=== PATIENT | male | born 1975 | race Caucasian/White ===

== ENCOUNTER 2020-03-19 07:29 | Emergency (ER) | payer OTHER, SELFPAY ==
[2020-03-19] VITALS (10 sets, daily range): BP systolic 127–139; BP diastolic 75–93; PULSE 57–81; RESP 16; TEMP 36.9; O2SAT 98–99; BMI 23.1
--- NOTE | 2020-03-19 07:52 | ED.ABDPAIN ---
HPI - Abdominal Pain General Chief Complaint: Abdominal Pain Stated Complaint: abd pain Time Seen by Provider: 03/19/20 07:51 Source: patient Mode of arrival: Ambulatory Limitations: no limitations History of Present Illness HPI narrative: This is a 45-year-old male who comes to the emergency department with complaint of lower abdominal pain. Patient states pain started shortly after lifting heavy weight objects. He has continued to lift objects intermittently as part of his job and continues to have discomfort. He states it then began radiating towards the right side and then also moving up towards the epigastric area. He states that a sit-up or crunch position exacerbates his symptoms. He denies any back or flank pain. He denies any pain radiating down his legs or into his testicles. He did have a muscle pull that had been suspected to be a hernia in the past and actually saw a surgeon. He states that was more in the groin and felt different than today. He denies any fevers, no chills. He has had nausea particularly when in significant pain but no vomiting. He has had normal bowel movements with no diarrhea, constipation, melena or hematochezia. He denies any dysuria, urgency frequency or incontinence. He has tried Tylenol and ibuprofen for discomfort with mild to moderate improvement. He denies any other medical issues. He does use cigarettes, he does drink alcohol daily, he uses marijuana but no other illicit. He is accompanied by his significant other. Related Data Previous Rx's Medication Instructions Recorded diazepam [Valium] 10 mg PO SEE INSTRUCTIONS #2 tab 06/21/16 amoxicillin-pot clavulanate 1 tab PO Q12H #20 tab 03/19/20 [Augmentin] ketorolac 10 mg PO Q6H 5 Days #20 tab 03/19/20 ondansetron HCl [Zofran] 4 mg PO Q6H PRN #10 tab 03/19/20 Allergies Allergy/AdvReac Type Severity Reaction Status Date / Time No Known Drug Allergies Allergy Verified 03/19/20 07:39 Review of Systems Review of Systems ROS Unobtainable: All systems reviewed & are unremarkable except as noted in HPI and below Patient History Social History Smoking Status: Current every day smoker Smoking Status: Current every day smoker tobacco type: cigarettes alcohol intake frequency: 3 or more drinks per day Substance Use Type: marijuana Exam Narrative Exam Narrative: GENERAL: Alert and oriented x three, thin, well-appearing male in mild distress. HEENT: Head normocephalic, atraumatic, EOMI, pupils reactive, face symmetric, moist mucous membranes NECK: Supple, full range of motion CARDIOVASCULAR: Regular rate and rhythm without murmurs, rubs or gallops. RESPIRATORY: Breath sounds equal bilaterally, no wheezes rales or rhonchi. ABDOMEN: Soft, nontender with palpation. Normoactive bowel sounds all 4 quadrants. No guarding or rebound, rigidity, no mass. No ecchymosis, no erythema or other skin changes noted. No bruit or pulsatile mass. : No CVA tenderness, no inguinal hernia noted. EXTREMITIES: Normal range of motion, no clubbing or edema. Neurovascularly intact NEUROLOGICAL: Cranial nerves II through XII grossly intact. Moving all extremities SKIN: Warm, dry, no petechiae, no rashes or lesions. Initial Vital Signs Initial Vital Signs: Vital Signs Blood Pressure 127/87 03/19/20 07:37 Course Orders Ordered: ED Orders 03/19/20 08:20 Complete Blood Count AUTO DIFF Stat Comprehensive Metabolic Panel Stat Lipase Stat 03/19/20 09:21 CT abdomen pelvis w con Stat Discontinued Medications Sodium Chloride (Normal Saline 0.9%) 1,000 mls @ 1,000 mls/hr IV BOLUS ONE Stop: 03/19/20 09:01 Last Infusion: 03/19/20 09:28 Dose: 0 mls/hr Documented by: Admin: 03/19/20 08:25 Dose: 1,000 mls/hr Documented by: SHERRIE Ketorolac Tromethamine (Ketorolac 60 Mg/2 Ml Vial) 30 mg IV NOW ONE Stop: 03/19/20 08:03 Last Admin: 03/19/20 08:27 Dose: 30 mg Documented by: SHERRIE Ondansetron HCl (Ondansetron 4 Mg/2 Ml Inj) 4 mg IV NOW ONE Stop: 03/19/20 08:03 Last Admin: 03/19/20 08:28 Dose: 4 mg Documented by: SHERRIE Reevaluation(s) Time: 08:57 Vital Signs Vital signs: Vital Signs - 8 hr 03/19/20 07:37 03/19/20 07:38 03/19/20 07:39 Temperature 98.5 F Pulse Rate 81 76 Respiratory Rate 16 Blood Pressure 127/87 127/87 Pulse Oximetry 99 98 03/19/20 08:00 03/19/20 08:30 03/19/20 09:22 Temperature Pulse Rate 66 63 58 L Respiratory Rate Blood Pressure 129/81 128/93 H Pulse Oximetry 98 98 98 03/19/20 09:23 03/19/20 09:30 03/19/20 10:00 Temperature Pulse Rate 57 L 61 69 Respiratory Rate Blood Pressure 139/75 Pulse Oximetry 99 99 98 03/19/20 10:10 Temperature Pulse Rate 64 Respiratory Rate 16 Blood Pressure 132/76 Pulse Oximetry 99 MDM - Abdominal Pain Lab Data Attestation: I reviewed the patient's lab results. Lab results narrative: Patient's labs show no major abnormalities. Point of care urine is negative Result diagrams: 03/19/20 08:20 03/19/20 08:20 Labs: Lab Results 03/19/20 03/19/20 Range/Units 08:20 08:20 WBC 4.5 (4.5-11.0) X10^3/uL RBC 4.40 L (4.5-5.9) X10^6/uL Hgb 14.0 (13.5-17.5) g/dL Hct 41.1 (41-53) % MCV 93.6 (80-100) fL MCH 31.9 (26-34) PG MCHC 34.1 (30-36) % RDW 13.2 (11.6-14.8) % Plt Count 250 (150-400) X10^3/uL Neut % (Auto) 53.1 (50-75) % Lymph % (Auto) 30.1 (25-40) % [place] % (Auto) 14.6 H (3-14) % Eos % (Auto) 1.9 L (2-4) % Baso % (Auto) 0.3 (0-2) % Neut # (Auto) 2400 (9243-4018) /uL Lymph # (Auto) 1300 (2387-6652) /uL [place] # (Auto) 700 (0-900) /uL Eos # (Auto) 100 (0-450) /uL Baso # (Auto) 0 (0-100) /uL Sodium 139 (137-145) mmol/L Potassium 4.2 (3.4-5.1) mmol/L Chloride 108 H (98-107) mmol/L Carbon Dioxide 29 (22-32) mmol/L BUN 12 (9-20) mg/dL Creatinine 0.53 L (0.66-1.25) mg/dL Estimated GFR > 60.0 (>60) mL/min BUN/Creatinine Ratio 22.6 H (6-22) Glucose 96 (70-100) mg/dL Calcium 9.1 (8.4-10.2) mg/dL Total Bilirubin 0.6 (0.2-1.3) mg/dL AST 41 (17-59) IU/L ALT 28 (<50) IU/L Alkaline Phosphatase 63 (38-126) U/L Total Protein 6.9 (6.3-8.2) g/dL Albumin 4.2 (3.5-5.0) g/dL Globulin 2.7 (1.7-4.1) g/dL Albumin/Globulin Ratio 1.6 (1.0-2.8) Lipase 43 (23-300) U/L Point of care testing: Urine Dip Bedside Urine Glucose Negative Bedside Urine Bilirubin - Negative Bedside Urine Ketone - Negative Urine Specific [place] 1.010 Bedside Urine Occult Blood - Negative Bedside Urine pH 8 Bedside Urine Protein - Negative Bedside Urine Urobilinogen - Negative Bedside Urine Nitrite - Negative Bedside Urine Leukocytes - Negative Esterase Imaging Data CT scan - abdomen/pelvis: Radiologist's Impression: [address] [id number] Scan ReportSigned Patient: Chris Patterson [facility]#: [id number]: 1975Acct:[id number]/Sex: 45 / MDate of Service: 03/19/20Loc: EDAccession Number: [id number] Procedure: CT abdomen pelvis w con Ordering Provider: Lynne Borges D.O. PROCEDURE: CT ABDOMEN PELVIS W CON INDICATIONS: LLQ pain no radiating to right and epigastric area TECHNIQUE: After the administration of intravenous contrast, 5 mm thick sections acquired from the diaphragm to the symphysis. 5 mm coronal and sagittal reformats were acquired. For radiation dose reduction, the following was used: automated exposure control, adjustment of mA and/or kV according to patient size. COMPARISON: None. FINDINGS: Image quality: Excellent. ABDOMEN: Lung bases: Lung bases are clear. Heart size is normal. Solid organs: Liver is normal in size and enhancement. Gallbladder wall is not thickened. Biliary system is non dilated. Pancreas enhances normally. Spleen is normal in size and enhancement. No adrenal nodules. Kidneys demonstrate normal size and enhancement, without hydronephrosis. A water density cyst is seen at the inferior pole of the right kidney measuring 12 Hounsfield units and 1.3 cm. Peritoneum and bowel: In this patient with this given history, scrutiny is given to sigmoid colon and the left lower quadrant. There is minimal sigmoid diverticulosis seen. There is mild wall thickening seen involving the distal descending colon/proximal sigmoid colon. No findings of perforation or abscess can be seen. Bowel loops otherwise demonstrate normal wall thickness and caliber. No free fluid or air. A normal appendix is incidentally noted. Nodes and vessels: No retroperitoneal or mesenteric adenopathy by size criteria. Aorta and inferior vena cava are normal in size. Miscellaneous: No ventral hernias. PELVIS: Genitourinary: Bladder wall thickness is normal. Miscellaneous: No inguinal hernias or adenopathy. Bones: No suspicious bony lesions. No vertebral body compression fractures. Mild levoconvex scoliotic curvature is noted. IMPRESSION: Mild wall thickening is seen involving the distal descending colon and proximal sigmoid colon. Please correlate with causes of focal colitis, including diverticulitis. No findings of perforation or abscess can be seen. Incidental note is made of: Simple appearing right renal cyst Levoconvex scoliotic curvature Normal appendix Dictated by: Demetrio Baca M.D. on 03/19/2020 at 8:29 Approved by: Demetrio Baca M.D. on 03/19/2020 at 8:32 MDM Narrative Medical decision making narrative: 45-year-old male comes emergency department complaint of abdominal pain that sounds suspicious for musculoskeletal cause but with changing location over the last week, nausea concern for possible flu intra-abdominal process. Patient's labs show no major abnormalities, point of care urine is negative. Patient's CT shows thickening consistent with colitis there is a small amount of sigmoid diverticulosis in the same area so elected to start oral antibiotics. Patient was given prescription for Toradol and Zofran as he found this quite helpful. Discharge Plan Departure Patient Disposition: Home Clinical Impression: Colitis, Abdominal pain, Cyst of right kidney Instructions: DI for Colitis Activity Restrictions/Additional Instructions: Your imaging today shows thickening of the sigmoid and distal colon, consistent with colitis, there is a small amount of diverticulosis but no significant diverticulitis in the same area but I would recommend starting oral antibiotics. There is a renal cyst noted incidentally but does not require any specific follow-up. Take antibiotics until completely gone. May take Zofran 1 tablet every 6 hours as needed for nausea. Take Toradol or ketorolac 1 tablet every 6 hours as needed for pain. I would recommend taking this with food or small glass of milk. Also you may take Tylenol with this medication but do not take any ibuprofen or other NSAIDs with this medication. Return to the ER for fevers, worsening abdominal pain, back or flank pain, black or bloody stools, lightheadedness or passing out new chest pain or shortness of breath, persistent vomiting or other new or concerning symptoms. Prescriptions: New amoxicillin-pot clavulanate [Augmentin] 875-125 mg tablet 1 tab PO Q12H Qty: 20 RF: 0 ketorolac 10 mg tablet 10 mg PO Q6H 5 Days Qty: 20 RF: 0 ondansetron HCl [Zofran] 4 mg tablet 4 mg PO Q6H PRN (Reason: nausea and vomiting) Qty: 10 RF: 0 No Action diazepam [Valium] 10 MG tablet 10 mg PO SEE INSTRUCTIONS Qty: 2 RF: 0 Stand Alone Forms: Work Release Note
[2020-03-19] MEDS: SODIUM CHLORIDE 0.9% 1,000 ML 1000 ML IV (08:25)
[2020-03-19] MEDS: KETOROLAC 60 MG/2 ML VIAL 30 MG IV (08:27)
[2020-03-19] MEDS: ONDANSETRON 4 MG/2 ML INJ IV (08:28)
[2020-03-19 08:35] LABS: Add Manual Diff / Slide Review NO; Basophils Absolute Auto 0 /uL (0-100); Basophils Percent Auto 0.3 % (0-2); Eosinophils Absolute Auto 100 /uL (0-450); Eosinophils Percent Auto 1.9 % (2-4); Hematocrit 41.1 % (41-53); Lymphocytes Absolute Auto 1300 /uL (1100-4500); Lymphocytes Percent Auto 30.1 % (25-40); Mean Corpuscular HGB Conc 34.1 % (30-36); Mean Corpuscular Hemoglobin 31.9 PG (26-34); Mean Corpuscular Volume 93.6 fL (80-100); Monocytes Absolute Auto 700 /uL (0-900); Monocytes Percent Auto 14.6 % (3-14); Neutrophils Absolute Auto 2400 /uL (1500-7000); Neutrophils Percent Auto 53.1 % (50-75); Platelet Count 250 X10^3/uL (150-400); Red Cell Distribution Width 13.2 % (11.6-14.8); White Blood Cell Count 4.5 X10^3/uL (4.5-11.0)
[2020-03-19 08:51] LABS: Alanine Aminotransferase 28 IU/L (<50); Albumin 4.2 g/dL (3.5-5.0); Albumin Globulin Ratio 1.6 (1.0-2.8); Alkaline Phosphatase 63 U/L (38-126); Aspartate Aminotransferase 41 IU/L (17-59); BUN Creatinine Ratio 22.6 (6-22); Bilirubin Total 0.6 mg/dL (0.2-1.3); Blood Urea Nitrogen 12 mg/dL (9-20); Calcium 9.1 mg/dL (8.4-10.2); Carbon Dioxide 29 mmol/L (22-32); Chloride 108 mmol/L (98-107); Estimated Glomerular Filt Rate > 60.0 mL/min (>60); Globulin 2.7 g/dL (1.7-4.1); Glucose 96 mg/dL (70-100); HEMOLYSIS < 15 (0-50); Lipase 43 U/L (23-300); Potassium 4.2 mmol/L (3.4-5.1); Sodium 139 mmol/L (137-145); Total Protein 6.9 g/dL (6.3-8.2)
--- NOTE | 2020-03-19 09:21 | DI.CT.S_ITS ---
PROCEDURE: CT ABDOMEN PELVIS W CON INDICATIONS: LLQ pain no radiating to right and epigastric area TECHNIQUE: After the administration of intravenous contrast, 5 mm thick sections acquired from the diaphragm to the symphysis. 5 mm coronal and sagittal reformats were acquired. For radiation dose reduction, the following was used: automated exposure control, adjustment of mA and/or kV according to patient size. COMPARISON: None. FINDINGS: Image quality: Excellent. ABDOMEN: Lung bases: Lung bases are clear. Heart size is normal. Solid organs: Liver is normal in size and enhancement. Gallbladder wall is not thickened. Biliary system is non dilated. Pancreas enhances normally. Spleen is normal in size and enhancement. No adrenal nodules. Kidneys demonstrate normal size and enhancement, without hydronephrosis. A water density cyst is seen at the inferior pole of the right kidney measuring 12 Hounsfield units and 1.3 cm. Peritoneum and bowel: In this patient with this given history, scrutiny is given to sigmoid colon and the left lower quadrant. There is minimal sigmoid diverticulosis seen. There is mild wall thickening seen involving the distal descending colon/proximal sigmoid colon. No findings of perforation or abscess can be seen. Bowel loops otherwise demonstrate normal wall thickness and caliber. No free fluid or air. A normal appendix is incidentally noted. Nodes and vessels: No retroperitoneal or mesenteric adenopathy by size criteria. Aorta and inferior vena cava are normal in size. Miscellaneous: No ventral hernias. PELVIS: Genitourinary: Bladder wall thickness is normal. Miscellaneous: No inguinal hernias or adenopathy. Bones: No suspicious bony lesions. No vertebral body compression fractures. Mild levoconvex scoliotic curvature is noted. IMPRESSION: Mild wall thickening is seen involving the distal descending colon and proximal sigmoid colon. Please correlate with causes of focal colitis, including diverticulitis. No findings of perforation or abscess can be seen. Incidental note is made of: Simple appearing right renal cyst Levoconvex scoliotic curvature Normal appendix Dictated by: Demetrio Baac M.D. on 03/19/2020 at 8:29 Approved by: Demetrio Baca M.D. on 03/19/2020 at 8:32
== END 2020-03-19 10:17 | disposition home or self-care (01) ==
PROVIDERS: Emergency Provider Emergency Medicine; Family Provider Family Medicine
DX: K52.9 Noninfective gastroenteritis and colitis, unspecified (principal); R10.9 Unspecified abdominal pain; N28.1 Cyst of kidney, acquired; R11.0 Nausea
CPT/HCPCS: 36415; 74177; 80053; 81003; 83690; 85025; 96361; 96374; 96375; 99283; 99284; J1885; J2405; Q9967

== ENCOUNTER → 2020-04-30 07:56 | Outpatient (CLI) | payer OTHER, SELFPAY ==
[2020-04-30 08:17] LABS: Add Manual Diff / Slide Review NO; Basophils Absolute Auto 0 /uL (0-100); Basophils Percent Auto 0.3 % (0-2); Eosinophils Absolute Auto 100 /uL (0-450); Eosinophils Percent Auto 2.1 % (2-4); Hemoglobin 14.4 g/dL (13.5-17.5); Lymphocytes Absolute Auto 1200 /uL (1100-4500); Lymphocytes Percent Auto 34.4 % (25-40); Mean Corpuscular HGB Conc 33.6 % (30-36); Mean Corpuscular Hemoglobin 31.4 PG (26-34); Mean Corpuscular Volume 93.6 fL (80-100); Monocytes Absolute Auto 600 /uL (0-900); Monocytes Percent Auto 17.8 % (3-14); Neutrophils Absolute Auto 1600 /uL (1500-7000); Neutrophils Percent Auto 45.4 % (50-75); Platelet Count 244 X10^3/uL (150-400); Red Blood Cell Count 4.59 X10^6/uL (4.5-5.9); Red Cell Distribution Width 12.9 % (11.6-14.8); White Blood Cell Count 3.5 X10^3/uL (4.5-11.0)
[2020-04-30 09:21] LABS: Alanine Aminotransferase 19 IU/L (<50); Albumin 4.2 g/dL (3.5-5.0); Albumin Globulin Ratio 1.6 (1.0-2.8); Alkaline Phosphatase 67 U/L (38-126); Amylase 38 U/L (30-110); Aspartate Aminotransferase 30 IU/L (17-59); Bilirubin Total 0.5 mg/dL (0.2-1.3); Blood Urea Nitrogen 13 mg/dL (9-20); Calcium 9.4 mg/dL (8.4-10.2); Carbon Dioxide 26 mmol/L (22-32); Chloride 107 mmol/L (98-107); Estimated Glomerular Filt Rate > 60.0 mL/min (>60); Globulin 2.6 g/dL (1.7-4.1); Glucose 102 mg/dL (70-100); HEMOLYSIS 42 (0-50); Lipase 49 U/L (23-300); Sodium 138 mmol/L (137-145); Total Protein 6.8 g/dL (6.3-8.2)
== END ==
PROVIDERS: Family Provider Family Medicine; PCP Family Medicine; Referring Provider Nurse Practitioner Family; Visit Provider Nurse Practitioner Family
DX: R10.32 Left lower quadrant pain (principal)
CPT/HCPCS: 36415; 80053; 82150; 83690; 85025

== ENCOUNTER → 2020-09-15 15:53 | Outpatient (CLI) | payer OTHER, SELFPAY ==
[2020-09-15] MEDS: COVID-19 VACC, Ad26(JANSSEN)/PF 0.5 ML IM (16:00)
== END ==
PROVIDERS: Family Provider Family Medicine; PCP Family Medicine; Visit Provider Internal Medicine
DX: Z23 Encounter for immunization (principal)
CPT/HCPCS: 0031A; 91303

== ENCOUNTER → 2021-01-12 08:09 | Outpatient (CLI) | payer OTHER, SELFPAY ==
[2021-01-12 09:12] LABS: Add Manual Diff / Slide Review NO; Basophils Absolute Auto 0 /uL (0-100); Basophils Percent Auto 0.2 % (0-2); Eosinophils Absolute Auto 100 /uL (0-450); Hematocrit 43.3 % (41-53); Hemoglobin 14.4 g/dL (13.5-17.5); Lymphocytes Absolute Auto 1100 /uL (1100-4500); Lymphocytes Percent Auto 17.6 % (25-40); Mean Corpuscular HGB Conc 33.3 % (30-36); Mean Corpuscular Hemoglobin 31.1 PG (26-34); Mean Corpuscular Volume 93.4 fL (80-100); Monocytes Absolute Auto 800 /uL (0-900); Neutrophils Absolute Auto 4200 /uL (1500-7000); Neutrophils Percent Auto 68.2 % (50-75); Platelet Count 270 X10^3/uL (150-400); Red Blood Cell Count 4.64 X10^6/uL (4.5-5.9); Red Cell Distribution Width 13.2 % (11.6-14.8); White Blood Cell Count 6.2 X10^3/uL (4.5-11.0)
[2021-01-12 09:34] LABS: Alanine Aminotransferase 24 IU/L (<50); Albumin 4.2 g/dL (3.5-5.0); Albumin Globulin Ratio 1.6 (1.0-2.8); Alkaline Phosphatase 65 U/L (38-126); Aspartate Aminotransferase 37 IU/L (17-59); BUN Creatinine Ratio 28.3 (6-22); Bilirubin Total 0.6 mg/dL (0.2-1.3); Blood Urea Nitrogen 13 mg/dL (9-20); Calcium 8.9 mg/dL (8.4-10.2); Carbon Dioxide 27 mmol/L (22-32); Chloride 108 mmol/L (98-107); Estimated Glomerular Filt Rate > 60.0 mL/min (>60); Globulin 2.7 g/dL (1.7-4.1); Glucose 100 mg/dL (70-100); HEMOLYSIS 66 (0-50); Lipase 54 U/L (23-300); Potassium 4.7 mmol/L (3.4-5.1); Sodium 139 mmol/L (137-145); Total Protein 6.9 g/dL (6.3-8.2)
[2021-01-12 12:26] LABS: Appearance Urine UA CLEAR; Bilirubin Urine UA NEGATIVE (NEGATIVE); Color Urine UA YELLOW; Glucose Urine UA NEGATIVE (Negative); Ketones Urine UA NEGATIVE (NEGATIVE); Leukocyte Esterase Urine UA NEGATIVE (NEGATIVE); Nitrite Urine UA NEGATIVE (Negative); Occult Blood Urine UA NEGATIVE (Negative); Protein Urine UA NEGATIVE (Negative); Urobilinogen Urine UA 0.2 E.U./dL (0.2)
== END ==
PROVIDERS: Family Provider Family Medicine; PCP Family Medicine; Referring Provider Physician Assistant; Visit Provider Physician Assistant
DX: K57.92 Diverticulitis of intestine, part unspecified, without perforation or abscess without bleeding (principal)
CPT/HCPCS: 36415; 80053; 81003; 83690; 85025

== ENCOUNTER → 2023-04-27 07:21 | Outpatient (CLI) | payer OTHER, SELFPAY ==
[2023-04-27 08:55] LABS: Add Manual Diff / Slide Review NO; Basophils Absolute Auto 0 /uL (0-100); Basophils Percent Auto 0.2 % (0-2); Eosinophils Absolute Auto 100 /uL (0-450); Eosinophils Percent Auto 2.3 % (2-4); Hematocrit 42.5 % (41-53); Hemoglobin 14.4 g/dL (13.5-17.5); Lymphocytes Absolute Auto 1500 /uL (1100-4500); Lymphocytes Percent Auto 37.2 % (25-40); Mean Corpuscular HGB Conc 33.9 % (30-36); Mean Corpuscular Hemoglobin 31.2 PG (26-34); Mean Corpuscular Volume 91.9 fL (80-100); Monocytes Absolute Auto 600 /uL (0-900); Monocytes Percent Auto 14.5 % (3-14); Neutrophils Absolute Auto 1900 /uL (1500-7000); Neutrophils Percent Auto 45.8 % (50-75); Platelet Count 268 X10^3/uL (150-400); Red Blood Cell Count 4.63 X10^6/uL (4.5-5.9); Red Cell Distribution Width 13.2 % (11.6-14.8); White Blood Cell Count 4.1 X10^3/uL (4.5-11.0)
[2023-04-27 08:59] LABS: Alanine Aminotransferase 30 IU/L (<50); Albumin 4.6 g/dL (3.5-5.0); Albumin Globulin Ratio 1.5 (1.0-2.8); Alkaline Phosphatase 69 U/L (38-126); BUN Creatinine Ratio 27.3 (6-22); Bilirubin Total 0.8 mg/dL (0.2-1.3); Blood Urea Nitrogen 18 mg/dL (9-20); Calcium 9.5 mg/dL (8.4-10.2); Carbon Dioxide 25 mmol/L (22-32); Chloride 105 mmol/L (98-107); Cholesterol 201 mg/dL (140-199); Estimated Glomerular Filt Rate > 60 mL/min (>60); Glucose 94 mg/dL (70-100); HDL Cholesterol 78 mg/dL (40-60); HEMOLYSIS < 15 (0-50); LDL Cholesterol Calculated 109 mg/dL (<100); Sodium 139 mmol/L (137-145); Total Protein 7.6 g/dL (6.3-8.2); Triglycerides 68 mg/dL (35-150)
[2023-04-27 09:28] LABS: TSH w/ Reflex to FT4 1.05 uIU/mL (0.47-4.68)
[2023-04-27 09:40] LABS: HIV 1 & 2 Ab/Ag 4th Gen Combo NEGATIVE (NEGATIVE)
[2023-04-27 15:26] LABS: Aspartate Aminotransferase 37 IU/L (17-59)
[2023-04-27 18:21] LABS: Hep C Virus Ab w/Reflex Quant NEGATIVE s/c (NEGATIVE)
[2023-04-28 21:16] LABS: Tissue Transglutaminase IgA <2 U/mL (0-3); Tissue Transglutaminase IgG <2 U/mL (0-5)
[2023-05-05 13:34] LABS: Calprotectin, Stool 18 ug/g (0-120)
== END ==
LOC: LAB 07:22
PROVIDERS: Family Provider Family Medicine; PCP Family Medicine; Referring Provider Family Medicine; Visit Provider Family Medicine
DX: K57.92 Diverticulitis of intestine, part unspecified, without perforation or abscess without bleeding (principal); R10.9 Unspecified abdominal pain
CPT/HCPCS: 36415; 80053; 80061; 83516; 83993; 84443; 85025; 86803; 87177; 87389

== ENCOUNTER 2023-12-16 08:35 | Observation (INO) | payer OTHER, SELFPAY ==
[2023-12-16] VITALS (19 sets, daily range): BP systolic 111–144; BP diastolic 58–95; PULSE 69–87; RESP 11–31; TEMP 36.4–36.9; O2SAT 89–97; BMI 23.1
--- NOTE | 2023-12-16 08:41 | DI.RAD.S_ITS ---
PROCEDURE: XR RIBS LT MIN 3V W CXR1V INDICATIONS: Short of breath, rib pain, diminished LLL TECHNIQUE: 4 views of the ribs were acquired, along with a single view chest. COMPARISON: [facility], CR, XR SHOULDER LT MIN 2V, 12/16/2023, 8:52. FINDINGS: Surgical changes and devices: None. Bones and chest wall: Mildly displaced fractures can be seen on the left involving the 7th through 10th ribs. Mild soft tissue gas can be seen on the left. Age-appropriate bony degenerative changes are seen. Mild dextroconvex scoliotic curvature is seen. Lungs and pleura: There is believed to be a trace left apical pneumothorax. No pleural effusions are seen. Lungs appear clear. Mediastinum: Mediastinal contours appear normal. Heart size is normal. IMPRESSION: Mildly displaced left 7th through 10th ribs fractures seen, with associated overlying soft tissue gas seen. There is believed to be a trace associated pneumothorax, although this is not well seen. Note: Case discussed by telephone with Dr. Edwige Hernandez at 9:14 a.m. [place] time on December 16, 2023. Dictated by: Demetrio Baca M.D. on 12/16/2023 at 8:09 Approved by: Demertio Baca M.D. on 12/16/2023 at 8:14
--- NOTE | 2023-12-16 08:48 | DI.RAD.S_ITS ---
PROCEDURE: XR SHOULDER LT MIN 2V INDICATIONS: fall TECHNIQUE: 3 views of the shoulder were acquired. COMPARISON: [facility], CR, XR RIBS LT MIN 3V W CXR1V, 12/16/2023, 8:42. FINDINGS: Bones: No fractures or dislocations of the shoulder. Left-sided rib fractures are partially seen. No suspicious bony lesions. Visualized ribs appear intact. Soft tissues: No suspicious soft tissue calcifications. There is a potential trace left apical pneumothorax. IMPRESSION: No acute abnormality is seen of the shoulder. Left-sided rib fractures partially seen. Potential trace left apical pneumothorax. Note: Case discussed by telephone with Dr. Edwige Hernandez at 9:14 a.m. [place] time on December 16, 2023. Dictated by: Demetrio Baca M.D. on 12/16/2023 at 8:15 Approved by: Demetrio Baca M.D. on 12/16/2023 at 8:16
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
--- NOTE | 2023-12-16 09:12 | DI.CT.S_ITS ---
PROCEDURE: CT CHEST ABD PEL W CON INDICATIONS: blunt trauma TECHNIQUE: After the administration of intravenous contrast, 5 mm thick sections acquired from the lung apices to the symphysis. 2.5 mm thick coronal and sagittal reformats were acquired. Additional 7 mm thick coronal maximum intensity projection (MIP) reformats acquired through the lungs. Optional 10-minute delayed imaging may be performed from the kidneys to the bladder. For radiation dose reduction, the following was used: automated exposure control, adjustment of mA and/or kV according to patient size. COMPARISON: [facility], CT, CT CERVICAL SPINE WO CON, 12/16/2023, 9:18. [facility], CT, CT HEAD/BRAIN WO CON, 12/16/2023, 9:18. [facility], CR, XR SHOULDER LT MIN 2V, 12/16/2023, 8:52. [facility], CR, XR RIBS LT MIN 3V W CXR1V, 12/16/2023, 8:42. FINDINGS: Image quality: Diagnostic. CHEST: Lower Neck: No enlarged lymph nodes. Thyroid: No thyroid nodules which require sonographic evaluation. Axillae: No enlarged lymph nodes. Chest Wall: No subcutaneous gas. Lungs and Pleura: There is a small left lung apex pneumothorax seen. No pulmonary lacerations can be seen. There is dependent consolidation seen at the left lung base, which is attributed to atelectasis. Mild underlying emphysematous changes are seen, with subpleural bleb formation. Mediastinum: No mediastinal hematomas. Heart size is normal. No pericardial effusion. Thoracic aorta and pulmonary arteries demonstrate normal size and enhancement. No mediastinal or hilar adenopathy. Esophagus is normal in caliber. No hiatal hernia. ABDOMEN: Liver: No lacerations. Gallbladder: No radiopaque gallstones or wall thickening. Biliary ducts: No biliary dilation. Pancreas: Homogenous enhancement. Spleen: Homogenous enhancement without laceration or hematoma. Adrenal Glands: Symmetric enhancement. Kidneys and Ureters: Symmetric enhancement. No hydronephrosis. No solid mass. No complex renal cystic lesion which requires follow up. Stomach and Bowel: Normal colonic caliber, without significant wall thickening. No dilated loops of small bowel are seen. A normal appendix is noted. Peritoneum: No abnormal intraperitoneal fluid. No free air. Ventral Wall: No hernia. Abdominal Nodes: No retroperitoneal or mesenteric adenopathy by size criteria. Vessels: Aorta and inferior vena cava are normal in size. PELVIS: Pelvic Organs: Vasectomy clips can be seen. Bladder: Normal thickness. Pelvic Nodes: No enlarged lymph nodes. Miscellaneous: No inguinal hernias are seen. Bones: Left-sided rib fractures can be seen involving the 6th through 10th ribs. Pelvic ring and hip joints appear intact. IMPRESSION: Left-sided rib fractures seen, visualized from the 6 through 10th ribs. There is an associated small left-sided pneumothorax. Dependent consolidation can be seen at the lung base, which is attributed to atelectasis. No additional posttraumatic change can be seen. Additional findings: Vasectomy clips Dictated by: Demetrio Baca M.D. on 12/16/2023 at 9:39 Approved by: Demetrio Baca M.D. on 12/16/2023 at 9:44
--- NOTE | 2023-12-16 09:12 | DI.CT.S_ITS ---
PROCEDURE: CT HEAD/BRAIN WO CON INDICATIONS: fall TECHNIQUE: Noncontrast 4.5 mm thick angled axial sections acquired from the foramen magnum to the vertex, with coronal and sagittal reformats. For radiation dose reduction, the following was used: automated exposure control, adjustment of mA and/or kV according to patient size. COMPARISON: [facility], CT, CT CERVICAL SPINE WO CON, 12/16/2023, 9:18. [facility], CT, CT CHEST ABD PEL W CON, 12/16/2023, 9:18. [facility], CR, XR SHOULDER LT MIN 2V, 12/16/2023, 8:52. [facility], CR, XR RIBS LT MIN 3V W CXR1V, 12/16/2023, 8:42. FINDINGS: Image quality: This examination is limited by involuntary motion artifact. Mild streak artifact can be seen through the skull base. CSF spaces: Basal cisterns are patent. No extra-axial fluid collections. Ventricles are normal in size and shape. Brain: No midline shift. No intracranial masses or hemorrhage. Lewis-white matter interface is normal. Skull and face: Calvarium and visualized facial bones are intact, without suspicious lesions. Sinuses: Mucous retention cysts can be seen within the left maxillary sinus. Visualized sinuses and mastoids are otherwise clear. IMPRESSION: No acute intracranial hemorrhage is seen. No acute intracranial pathology. Dictated by: Demetrio Baca M.D. on 12/16/2023 at 9:32 Approved by: Demetrio Baca M.D. on 12/16/2023 at 9:33
--- NOTE | 2023-12-16 09:13 | DI.CT.S_ITS ---
PROCEDURE: CT CERVICAL SPINE WO CON INDICATIONS: fall, tender C5 TECHNIQUE: Noncontrast 3 mm thick sections acquired from the skull base to the T4 level. Sagittal and coronal reformats were then constructed. For radiation dose reduction, the following was used: automated exposure control, adjustment of mA and/or kV according to patient size. COMPARISON: [facility], CT, CT HEAD/BRAIN WO CON, 12/16/2023, 9:18. [facility], CT, CT CHEST ABD PEL W CON, 12/16/2023, 9:18. [facility], CR, XR SHOULDER LT MIN 2V, 12/16/2023, 8:52. [facility], CR, XR RIBS LT MIN 3V W CXR1V, 12/16/2023, 8:42. FINDINGS: Image quality: This examination is limited by involuntary motion artifact. Bones: No fractures or dislocations. Visualized superior ribs are intact. Soft tissues: Prevertebral soft tissues are normal in thickness. No paravertebral hematomas. There is a small left lung apex pneumothorax. IMPRESSION: No displaced fracture or traumatic subluxation, including at C5. Small left lung apex pneumothorax. Dictated by: Demetrio Baca M.D. on 12/16/2023 at 9:37 Approved by: Demetrio Baca M.D. on 12/16/2023 at 9:39
[2023-12-16] MEDS: ONDANSETRON 4 MG/2 ML INJ IV ×2 (09:24→15:55)
[2023-12-16] MEDS: SODIUM CHLORIDE 0.9% 1,000 ML 1000 ML IV (09:25)
[2023-12-16] MEDS: HYDROMORPHONE 0.5 MG INJ IV ×4 (09:25→20:21)
[2023-12-16 09:31] LABS: Add Manual Diff / Slide Review NO; Basophils Absolute Auto 0 /uL (0-100); Basophils Percent Auto 0.1 % (0-2); Eosinophils Absolute Auto 0 /uL (0-450); Hematocrit 42.6 % (41-53); Hemoglobin 14.3 g/dL (13.5-17.5); Lymphocytes Absolute Auto 900 /uL (1100-4500); Mean Corpuscular HGB Conc 33.5 % (30-36); Mean Corpuscular Hemoglobin 31.4 PG (26-34); Mean Corpuscular Volume 93.7 fL (80-100); Monocytes Absolute Auto 900 /uL (0-900); Monocytes Percent Auto 9.5 % (3-14); Neutrophils Absolute Auto 7800 /uL (1500-7000); Neutrophils Percent Auto 81.4 % (50-75); Platelet Count 290 X10^3/uL (150-400); Red Blood Cell Count 4.55 X10^6/uL (4.5-5.9); Red Cell Distribution Width 13.6 % (11.6-14.8); White Blood Cell Count 9.6 X10^3/uL (4.5-11.0)
--- NOTE | 2023-12-16 09:41 | PC.NURSE ---
This RN clocked in at 9am patient already in room. This RN placed c-collar on patient at 0910.
[2023-12-16 09:44] LABS: Alanine Aminotransferase 34 IU/L (<50); Albumin 4.8 g/dL (3.5-5.0); Albumin Globulin Ratio 1.7 (1.0-2.8); Alkaline Phosphatase 85 U/L (38-126); Aspartate Aminotransferase 47 IU/L (17-59); BUN Creatinine Ratio 18.3 (6-22); Bilirubin Total 0.6 mg/dL (0.2-1.3); Blood Urea Nitrogen 11 mg/dL (9-20); Calcium 9.7 mg/dL (8.4-10.2); Carbon Dioxide 22 mmol/L (22-32); Chloride 106 mmol/L (98-107); Estimated Glomerular Filt Rate > 60 mL/min (>60); Globulin 2.9 g/dL (1.7-4.1); Glucose 122 mg/dL (70-100); HEMOLYSIS < 15 (0-50); Lipase 39 U/L (23-300); Potassium 4.4 mmol/L (3.4-5.1); Sodium 140 mmol/L (137-145); Total Protein 7.7 g/dL (6.3-8.2)
[2023-12-16] MEDS: KETOROLAC 30 MG/ML VIAL 15 MG IV (10:01)
[2023-12-16] MEDS: HYDROMORPHONE 1 MG INJ IV (10:01)
--- NOTE | 2023-12-16 10:28 | PC.NURSE ---
This RN went to check on patient due to low pulse ox and patient is resting eyes with noted chest rise and fall. of patient informed this RN that patient has known sleep apnea. This RN placed nasal cannula on patient and turned oxygen on 2L. Informed provider.
--- NOTE | 2023-12-16 12:53 | PC.NURSE ---
Addendum entered by Mikayla Acosta R.N. 12/16/23 13:00: Pt arrived from ED at 1235* Original Note: Pt arrived from ED at 135, able to ambulate independently from stretcher to bed. A&Ox4, VSS on RA, lung sounds slightly decreased on L side, but otherwise CTA. Pt c/o 7/10 pain to L thorax/rib area. CMS+, bowel sounds present. Pt and family member oriented to room and call light. Bed in low position, call light within reach.
[2023-12-16] MEDS: ACETAMINOPHEN 325 MG TABLET 650 MG PO ×2 (13:05→18:53)
[2023-12-16] MEDS: CELECOXIB 200 MG CAPSULE PO ×2 (13:06→20:20)
--- NOTE | 2023-12-16 14:41 | P.HP_ITS ---
History of Present Illness History of Present Illness Date Patient Seen: 12/16/23 Time Patient Seen: 14:41 Chief complaint: L RIB/HAND PAIN Narrative: Trauma involved ground level fall with Chest pain, SOB, right hand pain. Recall is limited of the event. Head CT is normal. Chest CT is reviewed and a I agree there is left apical PTX, Bilateral random peripheral bulle. rib fractures Left 6-10 PFSH Medical History Anxiety (01/20/16) Diverticulitis Social History household members: spouse Smoking Status: Current every day smoker Tobacco: How many years used: 15 quit status: has quit before alcohol intake: current substance use type: marijuana Meds Home Medications and Allergies Home Medications Medication Instructions Recorded Confirmed Type hydroxyzine HCl 25 mg tablet 25 mg PO BID PRN anxiety #60 tabs 04/25/23 12/16/23 Rx escitalopram oxalate 5 mg tablet 5 mg PO DAILY #30 tabs 10/22/23 12/16/23 Rx Allergies Allergy/AdvReac Type Severity Reaction Status Date / Time No Known Drug Allergies Allergy Verified 05/24/23 07:58 Review of Systems Review of Systems ROS: Yes All systems reviewed with the patient and are negative except as otherwise documented Exam Vital Signs (past 8 hours): - 12/16/23 08:39 12/16/23 09:06 12/16/23 09:09 Temperature 98.4 F Pulse Rate 84 79 Respiratory Rate 16 31 H Blood Pressure 135/68 129/77 Pulse Oximetry 96 94 Oxygen Delivery Method Room Air Oxygen Flow Rate 12/16/23 09:30 12/16/23 09:30 12/16/23 10:00 Temperature Pulse Rate 76 83 Respiratory Rate 23 24 Blood Pressure 120/76 Pulse Oximetry 94 91 Oxygen Delivery Method Room Air Oxygen Flow Rate 12/16/23 10:00 12/16/23 10:15 12/16/23 10:15 Temperature Pulse Rate 79 Respiratory Rate 16 Blood Pressure 144/76 H 128/72 Pulse Oximetry 89 L Oxygen Delivery Method Room Air Oxygen Flow Rate 12/16/23 10:30 12/16/23 10:30 12/16/23 10:45 Temperature Pulse Rate 83 79 Respiratory Rate 18 11 L Blood Pressure 126/73 Pulse Oximetry 97 97 Oxygen Delivery Method Nasal Cannula Nasal Cannula Oxygen Flow Rate 2 2 12/16/23 10:45 12/16/23 11:00 12/16/23 11:00 Temperature Pulse Rate 79 Respiratory Rate 12 Blood Pressure 134/72 124/67 Pulse Oximetry 96 Oxygen Delivery Method Nasal Cannula Oxygen Flow Rate 2 12/16/23 11:15 12/16/23 11:15 12/16/23 11:30 Temperature Pulse Rate 81 87 Respiratory Rate 14 15 Blood Pressure 111/63 Pulse Oximetry 96 95 Oxygen Delivery Method Nasal Cannula Nasal Cannula Oxygen Flow Rate 2 2 12/16/23 11:30 12/16/23 11:45 12/16/23 11:45 Temperature Pulse Rate 78 Respiratory Rate 13 Blood Pressure 121/67 116/58 L Pulse Oximetry 95 Oxygen Delivery Method Oxygen Flow Rate 12/16/23 12:00 12/16/23 12:00 12/16/23 12:15 Temperature Pulse Rate 77 78 Respiratory Rate 15 16 Blood Pressure 120/69 Pulse Oximetry 96 95 Oxygen Delivery Method Oxygen Flow Rate 12/16/23 12:15 12/16/23 12:30 12/16/23 12:31 Temperature Pulse Rate 78 77 Respiratory Rate 18 16 Blood Pressure 120/73 Pulse Oximetry Oxygen Delivery Method Oxygen Flow Rate 12/16/23 12:31 12/16/23 12:31 12/16/23 12:36 Temperature 98.4 F Pulse Rate 80 Respiratory Rate 16 Blood Pressure 135/82 135/85 Pulse Oximetry 93 Oxygen Delivery Method Room Air Oxygen Flow Rate 0 Oxygen Delivery Method Room Air Oxygen Flow Rate 0 Const General: cooperative and acute distress Nutritional Appearance: average body habitus Orientation: alert, awake and oriented x3 [facility] Head: normocephalic and atraumatic Eyes General: appearance normal, both eyes and all related structures Sclera: sclerae normal Neck Neck: trachea midline Chest Chest: No crepitus and tenderness (left sided) Resp Effort & Inspection: normal respiratory effort, able to speak in complete sentences and no tracheal deviation Cardio Rate: regular rate Rhythm: regular rhythm GI Palpation: soft and No tender Skin General: elasticity normal and turgor normal Neuro General: patient alert, patient awake and patient oriented x3 Cognition: normal cognition Extrem General: full ROM Psych Appearance: grossly normal Mental Status: mental status grossly normal Judgment: judgment good Objective Labs 12/16/23 09:20 12/16/23 09:20 Labs: Laboratory Results - last 24 hr 12/16/23 09:20 WBC 9.6 RBC 4.55 Hgb 14.3 Hct 42.6 MCV 93.7 MCH 31.4 MCHC 33.5 RDW 13.6 Plt Count 290 Neut % (Auto) 81.4 H Lymph % (Auto) 9.0 L Lassen % (Auto) 9.5 Eos % (Auto) 0.0 L Baso % (Auto) 0.1 Neut # (Auto) 7800 H Lymph # (Auto) 900 L Lassen # (Auto) 900 Eos # (Auto) 0 Baso # (Auto) 0 Sodium 140 Potassium 4.4 Chloride 106 Carbon Dioxide 22 BUN 11 Creatinine 0.60 L Estimated GFR > 60 BUN/Creatinine Ratio 18.3 Glucose 122 H Calcium 9.7 Total Bilirubin 0.6 AST 47 ALT 34 Alkaline Phosphatase 85 Total Protein 7.7 Albumin 4.8 Globulin 2.9 Albumin/Globulin Ratio 1.7 Lipase 39 Assessment & Plan Assessment & Plan narrative: Trauma with left apical PTX and rib fractures 6-10 Plan: observation with repeat CXR in AM Nasal canula O2 RT consult for pulmonary toilet Pain control Time-Based Coding :: 45 minutesspent with patient and on the chart (including review of chart, obtaining history, exam, reviewing outside data, placing orders, documenting exam and treatment plan, and counseling patient) on 12/16/2023.
[2023-12-16] MEDS: OXYCODONE IR 10 MG TABLET PO ×2 (15:55→18:53)
[2023-12-16] MEDS: CALCIUM CARBONATE 500 MG TAB 1000 MG PO (16:31)
[2023-12-16] MEDS: DICLOFENAC 1% GEL 100 GM 1 APPLIC TOP ×2 (16:32→20:20)
[2023-12-16] MEDS: NICOTINE 21 MG PATCH TOP (17:27)
[2023-12-16] MEDS: SENNOSIDES 8.6 MG TABLET 17.2 MG PO (20:20)
[2023-12-17 02:00] VITALS: BP 130/79; PULSE 68; RESP 16; TEMP 36.1; O2SAT 96
[2023-12-17] MEDS: HYDROMORPHONE 0.5 MG INJ IV (04:05)
--- NOTE | 2023-12-17 05:00 | DI.RAD.S_ITS ---
PROCEDURE: XR CHEST 1V INDICATIONS: ptx TECHNIQUE: One view of the chest was acquired. COMPARISON: [facility], CT, CT CHEST ABD PEL W CON, 12/16/2023, 9:18. [facility], CT, CT CERVICAL SPINE WO CON, 12/16/2023, 9:18. FINDINGS: Surgical changes and devices: None. Lungs and pleura: Mild opacity at the left lung base. Trace left hemothorax. Small left pneumothorax, unchanged. Mediastinum: Mediastinal contours appear unchanged. Heart size is normal. Bones and chest wall: No suspicious bony lesions. Left 8th and 9th rib fractures. Overlying soft tissues appear unremarkable. IMPRESSION: 1. Small left pneumothorax is not significantly changed. Trace left hemothorax. 2. Left lung base contusion or atelectasis. Dictated by: Joaquin Arnada M.D. on 12/17/2023 at 8:48 Approved by: Joaquin Aranda M.D. on 12/17/2023 at 8:55
[2023-12-17] MEDS: OXYCODONE IR 10 MG TABLET PO ×2 (06:33→09:50)
[2023-12-17] MEDS: ACETAMINOPHEN 325 MG TABLET 650 MG PO (06:34)
[2023-12-17 08:00] VITALS: BP 115/75; PULSE 65; RESP 16; TEMP 36.2; O2SAT 99
[2023-12-17] MEDS: CELECOXIB 200 MG CAPSULE PO (09:50)
[2023-12-17] MEDS: ESCITALOPRAM 10 MG TABLET 5 MG PO (09:50)
[2023-12-17] MEDS: NICOTINE 21 MG PATCH TOP (09:50)
[2023-12-17] MEDS: DICLOFENAC 1% GEL 100 GM 1 APPLIC TOP (09:52)
--- NOTE | 2023-12-17 11:18 | CM.DANOTE ---
DCP Assessment Note- Brief Pt is a 48yo M here following multiple rib fractures after a fall. 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 Pt lives in [place] with partner Ollie at baseline. Per surgical team, cleared to dc home today. Per chart review, unsure how much alcohol involvement was part of the reason for the fall. Tox screen non completed during this admission. Pt and spouse were discharging/walking out when this HVAC PROJECT ENGINEER attempted assessment P: dc home today with spouse support. No CM needs. CM team will follow as needed ESTER Guy Discharge Planning/Care Management CM Discharge Assessment Start: 12/17/23 11:16 Freq: Status: Active Protocol: Document 12/17/23 11:16 (Rec: 12/17/23 11:17 [id number]) Discharge Planning Assessment Assigned Senior Economist ESTER Mary DPOA/Assigned Designee Name andi Samuel Contact Information [phone] Advance Directives? No History Provided By Patient Prior Living Arrangements House Household Members spouse Type of transporation used prior to Drives own vehicle admit Independent with ADL's Yes Is patient alert and oriented? Yes Barriers to Discharge No Discharge Plan Home Transportation Arrangement partner Referrals Initiated None needed Whiteboard Updated in Patient Room with No name and ext. # of Senior Economist Comment pt left prior to being seen by this HVAC PROJECT ENGINEER Review Status In Process Please Provide Date Initial DC 12/17/23 Assessment Was Performed Next Review Type Continued Stay Review
== END 2023-12-17 11:15 | disposition home or self-care (01) ==
LOC: ED 11:55 → AC 12:02
PROVIDERS: Admitting Provider Surgery; Emergency Provider Emergency Medicine; Referring Provider Emergency Medicine; Visit Provider Surgery
DX: R06.02 Shortness of breath (principal); W19.XXXA Unspecified fall, initial encounter; Y92.89 Other specified places as the place of occurrence of the external cause; S22.42XA Multiple fractures of ribs, left side, initial encounter for closed fracture; S27.0XXA Traumatic pneumothorax, initial encounter; F17.210 Nicotine dependence, cigarettes, uncomplicated
CPT/HCPCS: 36415; 70450; 71045; 71101; 71260; 72125; 73030; 74177; 80053; 83690; 85025; 96361; 96374; 96375; 96376; 99233; 99285; G0378; J1170; J1885; J2405; Q9967

== ENCOUNTER 2023-12-19 19:10 | Emergency (ER) | payer OTHER, SELFPAY ==
[2023-12-16 12:50] VITALS: BMI 23.1
[2023-12-19] VITALS (10 sets, daily range): BP systolic 120–156; BP diastolic 80–98; PULSE 61–87; RESP 18–19; TEMP 36.6; O2SAT 92–98; BMI 23.7
--- NOTE | 2023-12-19 19:32 | DI.RAD.S_ITS ---
PROCEDURE: XR SHOULDER LT MIN 2V INDICATIONS: L shoulder pain after fall TECHNIQUE: 3 views of the shoulder were acquired. COMPARISON: [facility], CR, XR SHOULDER LT MIN 2V, 12/16/2023, 8:52. FINDINGS: Bones: No fractures or dislocations. Mild acromioclavicular joint osteoarthritis is seen. No suspicious bony lesions. Visualized ribs appear intact. Soft tissues: No suspicious soft tissue calcifications. IMPRESSION: No shoulder fracture or dislocation. Mild acromioclavicular joint osteoarthritis. Dictated by: Javier Stafford M.D. on 12/19/2023 at 20:00 Approved by: Javier Stafford M.D. on 12/19/2023 at 20:00
--- NOTE | 2023-12-19 19:32 | ED.LOWEXIN ---
HPI - Extremity Injury (Lower) General Chief Complaint: Extremity Injury, Lower Stated Complaint: possible blood clot Time Seen by Provider: 12/19/23 19:18 Source: patient and family Mode of arrival: Ambulatory History of Present Illness HPI Narrative: Patient is a 48-year-old male. Approximately 3 days ago sustained an injury where he fell. Was seen here in the emergency department afterwards. Had an extensive workup and was found to multiple rib fractures in the left and a small pneumothorax. Was admitted to the hospital for observation. Discharged home the next day. No chest tube was placed. Since that time he has had continued discomfort but states that it is somewhat improving. He states he was having left shoulder pain that has maybe somewhat worse than when he was last evaluated. Has difficulty moving his shoulder. He was having some tingling down into his left arm. He also noticed today he was having swelling in his lower extremities with the left being greater than right. He also has not had a bowel movement since the injury. He thinks this is because it hurts when he has to strain to have the bowel movement. He has tried Colace. Has been taking his pain medication at home. No fevers. Related Data Previous Rx's Medication Instructions Recorded hydroxyzine HCl 25 mg tablet 25 mg PO BID PRN anxiety #60 tabs 04/25/23 escitalopram oxalate 5 mg tablet 5 mg PO DAILY #30 tabs 10/22/23 celecoxib 200 mg capsule (Celebrex) 200 mg PO BID #60 caps 12/17/23 oxycodone 10 mg tablet 10 mg PO Q3H PRN Pain, Severe 12/17/23 (7-10) #15 tabs oxycodone 10 mg tablet 10 mg PO Q8H PRN pain #20 tabs 12/19/23 Allergies Allergy/AdvReac Type Severity Reaction Status Date / Time No Known Drug Allergies Allergy Verified 05/24/23 07:58 Review of Systems Review of Systems ROS Unobtainable: All systems reviewed & are unremarkable except as noted in HPI and below Patient History Medical History Anxiety (01/20/16) Diverticulitis Social History household members: spouse Smoking Status: Current every day smoker Tobacco: How many years used: 15 quit status: has quit before alcohol intake: current substance use type: marijuana Smoking Status: Current every day smoker tobacco type: cigarettes alcohol intake frequency: 3 or more drinks per day Substance Use Type: marijuana Exam Initial Vital Signs Initial Vital Signs: Vital Signs Temperature 97.9 F 12/19/23 19:16 Pulse Rate 87 12/19/23 19:16 Respiratory Rate 18 12/19/23 19:16 Blood Pressure 138/98 H 12/19/23 19:16 Pulse Oximetry 98 12/19/23 19:16 Oxygen Delivery Method Room Air 12/19/23 19:16 Const General: cooperative, comfortable and No ill appearing HENMT Head: normal to inspection and normocephalic Chest Other: Discomfort left-sided chest wall without crepitus Resp Effort & Inspection: normal respiratory effort Auscultation: clear to auscultation bilaterally Cardio Rate: regular rate Rhythm: regular rhythm GI Inspection: normal to inspection and non-distended Palpation: soft and No tender Skin General: no rashes or lesions noted Neuro General: patient alert, patient awake and moves all extremities Extrem Other: Mild edema left lower extremity. Course Orders Ordered: ED Orders 12/19/23 19:32 XR chest 1V Stat XR shoulder LT min 2V Stat 12/19/23 19:34 US periph venous low extrem bi Stat Discontinued Medications Ondansetron HCl (Ondansetron 4 Mg Odt) 4 mg SL NOW ONE Stop: 12/19/23 19:48 Last Admin: 12/19/23 19:54 Dose: 4 mg Documented By: SB Vital Signs Vital signs: Vital Signs - 8 hr 12/19/23 19:16 12/19/23 19:23 12/19/23 19:24 Temperature 97.9 F Pulse Rate 87 87 Respiratory Rate 18 Blood Pressure 138/98 H 156/85 H Pulse Oximetry 98 95 Oxygen Delivery Method Room Air 12/19/23 19:24 12/19/23 19:30 12/19/23 19:30 Temperature Pulse Rate 82 76 Respiratory Rate 19 Blood Pressure 139/89 Pulse Oximetry 96 96 Oxygen Delivery Method Room Air 12/19/23 19:54 12/19/23 20:00 12/19/23 20:00 Temperature Pulse Rate 70 Respiratory Rate Blood Pressure 126/80 Pulse Oximetry 93 92 Oxygen Delivery Method Room Air 12/19/23 20:25 12/19/23 20:25 12/19/23 20:30 Temperature Pulse Rate 64 62 Respiratory Rate Blood Pressure 144/86 H Pulse Oximetry 95 94 Oxygen Delivery Method Room Air 12/19/23 20:30 12/19/23 21:00 12/19/23 21:00 Temperature Pulse Rate 63 Respiratory Rate Blood Pressure 121/81 120/82 Pulse Oximetry 96 Oxygen Delivery Method 12/19/23 21:30 12/19/23 21:30 Temperature Pulse Rate 61 Respiratory Rate Blood Pressure 125/81 Pulse Oximetry 93 Oxygen Delivery Method Room Air MDM - Extremity Injury (Lower) Medical Records Attestation: I reviewed the patient's medical records. Imaging Data Chest x-ray: Radiologist's Impression: PROCEDURE: XR CHEST 1V INDICATIONS: hx of L pneumo with L shoulder pain TECHNIQUE: One view of the chest was acquired. COMPARISON: [facility], XR CHEST 1V, 12/17/2023, 5:05. FINDINGS: Surgical changes and devices: None. Lungs and pleura: Blunting of left costophrenic angle is again seen with left basilar small infiltrate/atelectasis. Patient's known tiny left apical pneumothorax is not significantly changed and measures up to 9 mm in craniocaudal dimension. Right lung is clear. Mediastinum: Mediastinal contours appear normal. Heart size is normal. Bones and chest wall: Slightly displaced left posterior lateral lower rib fractures are seen. Overlying soft tissues appear unremarkable. IMPRESSION: Stable tiny left apical pneumothorax. Small left pleural effusion and left basilar atelectasis/ small infiltrate. Displaced left posterior lateral lower rib fractures. Extremity x-ray #1: Radiologist's Impression: PROCEDURE: XR SHOULDER LT MIN 2V INDICATIONS: L shoulder pain after fall TECHNIQUE: 3 views of the shoulder were acquired. COMPARISON: [facility], XR SHOULDER LT MIN 2V, 12/16/2023, 8:52. FINDINGS: Bones: No fractures or dislocations. Mild acromioclavicular joint osteoarthritis is seen. No suspicious bony lesions. Visualized ribs appear intact. Soft tissues: No suspicious soft tissue calcifications. IMPRESSION: No shoulder fracture or dislocation. Mild acromioclavicular joint osteoarthritis. US - DVT: Radiologist's Impression: PROCEDURE: US PERIPH VENOUS LOW EXTREM BI INDICATIONS: EDEMA TECHNIQUE: Real-time imaging, as well as color and pulse Doppler interrogation, were performed of the deep veins of both legs from the inguinal ligament to the popliteal fossa, with documentation of the visualized calf veins. COMPARISON: None. FINDINGS: Right: The common femoral, femoral, popliteal, and the visualized calf veins are normally compressible, and free of intraluminal thrombus. Color and pulse Doppler demonstrate normal phasic intravascular flow. There is normal augmentation response to distal compression maneuver. Left: The common femoral, femoral, popliteal, and the visualized calf veins are normally compressible, and free of intraluminal thrombus. Color and pulse Doppler demonstrate normal phasic intravascular flow. There is normal augmentation response to distal compression maneuver. IMPRESSION: No findings of deep venous thrombosis in either lower extremity. MDM Narrative Medical decision making narrative: Chest x-ray shows residual left-sided pneumothorax but is not worse than when he was admitted to the hospital. No indication for chest tube for treatment of that. He was not hypoxic. There was no signs of pneumonia. Has negative DVT ultrasounds bilaterally. Left lower extremity does not have the appearance of cellulitis. Low suspicion for fracture as he is ambulating. I suspect that a lot of his discomfort is residual from the significant fall that he had approximately 3 days ago. We discussed his pain medication. We discussed the use of laxatives. There was no indication for readmission to the hospital today. I suspect that his symptoms will start to improve over the next couple days but will take some time before he was back to normal. He was given return precautions. He expressed understanding and agreement. Discharge Plan Departure Patient Disposition: Home Clinical Impression: Multiple fractures of ribs, Pneumothorax, Bilateral lower extremity edema Instructions: DI for Peripheral Edema -- Bilateral Activity Restrictions/Additional Instructions: Continue to take all of your medications as directed. Recommend that you keep all of your scheduled medical appointments. Be sure that you are using the incentive spirometer. Continue with the laxatives. Return to the emergency department for new symptoms. Prescriptions: New oxycodone 10 mg tablet 10 mg PO Q8H PRN (Reason: pain) Qty: 20 0RF No Action hydroxyzine HCl 25 mg tablet 25 mg PO BID PRN (Reason: anxiety) Qty: 60 1RF escitalopram oxalate 5 mg tablet 5 mg PO DAILY Qty: 30 5RF celecoxib [Celebrex] 200 mg Capsule 200 mg PO BID Qty: 60 0RF oxycodone 10 mg Tablet 10 mg PO Q3H PRN (Reason: Pain, Severe (7-10)) Qty: 15 0RF Referrals: Adarsh Lloyd MD [Primary Care Provider] - Stand Alone Forms: Patient Portal/API
[2023-12-19] MEDS: ONDANSETRON 4 MG ODT SL (19:54)
== END 2023-12-19 21:57 | disposition home or self-care (01) ==
PROVIDERS: Emergency Provider Emergency Medicine; PCP Family Medicine
DX: R60.0 Localized edema (principal); S22.49XS Multiple fractures of ribs, unspecified side, sequela; J93.9 Pneumothorax, unspecified
CPT/HCPCS: 71045; 73030; 93970; 99283

== ENCOUNTER → 2023-12-21 11:53 | Outpatient (CLI) | payer OTHER, SELFPAY ==
[2023-12-16 12:50] VITALS: BMI 23.1
--- NOTE | 2023-12-21 11:54 | DI.RAD.S_ITS ---
PROCEDURE: XR HIP W PEL IF DONE LT 2V INDICATIONS: GLF, rib fx, new bruising over hip TECHNIQUE: AP pelvis with two views of the left hip COMPARISON: None. FINDINGS: Bones: No fractures or dislocations. Pelvic ring appears intact. No suspicious bony lesions. There is some minimal osteoarthritic type degenerative change involving the left hip with some small marginal osteophytes. Soft tissues: The visualized bowel gas pattern is normal. No suspicious soft tissue calcifications. IMPRESSION: 1. No evidence for acute osseous abnormality involving the left hip or pelvis. 2. Minimal osteoarthritic type degenerative change left hip with some small marginal osteophytes. Dictated by: Nikos Tubbs M.D. on 12/21/2023 at 12:58 Approved by: Nikos Tubbs M.D. on 12/21/2023 at 13:00
== END ==
PROVIDERS: PCP Family Medicine; Referring Provider Family Medicine; Visit Provider Family Medicine
DX: M25.552 Pain in left hip (principal); S70.02XA Contusion of left hip, initial encounter
CPT/HCPCS: 73502